=== PATIENT | female | born 2000 | race Caucasian/White ===

== ENCOUNTER 2020-03-09 15:55 | Emergency (ER) | payer BC ==
[2020-03-09 21:49] LABS: SARS-CoV-2 PCR by NAA Not Detected (NotDetected)
== END 2020-03-09 17:00 | disposition home or self-care (01) ==
LOC: ERS 15:55
DX: Z20.822 Contact with and (suspected) exposure to COVID-19 (principal)
CPT/HCPCS: 87635; 99283; U0003; U0005